=== PATIENT | male | born 2000 | race Two or more races ===

== ENCOUNTER 2022-07-08 21:40 | Emergency (ER) | payer BC ==
[~2022-07-08] VITALS: Ht 170.2 cm; Wt 73.0 kg
[2022-07-08 21:47] VITALS: BP 124/65
== END 2022-07-08 23:59 | disposition home or self-care (01) ==
LOC: ER 21:40
DX: S00.83XA Contusion of other part of head, initial encounter (principal); X58.XXXA Exposure to other specified factors, initial encounter; Y93.89 Activity, other specified; Y92.89 Other specified places as the place of occurrence of the external cause; Y99.8 Other external cause status
CPT/HCPCS: 99281